=== PATIENT | male | born 1955 | race Caucasian/White ===

== ENCOUNTER → 2016-08-07 | Outpatient (CLI) | payer OTHER ==
--- NOTE | 2016-08-07 10:52 | CR ---
EXAMINATION: Right knee HISTORY: Pain COMPARISON: 10/22/2014 TECHNIQUE: Single PA view FINDINGS/IMPRESSION: There is severe joint space narrowing within the medial compartment with osteop hyte formation. No fracture or acute osseous abnormalities noted. Bone mineralization appears grossl y normal.
== END ==
LOC: MW.CHORTHO 07:56
PROVIDERS: ATTEND Orthopaedic Surgery
DX: M25.561 Pain in right knee (principal); M25.761 Osteophyte, right knee
CPT/HCPCS: 73560-26-RT; 73560-RT